=== PATIENT | female | born 1955 | race Caucasian/White ===

== ENCOUNTER 2017-03-28 06:53 | Day surgery (SDC) | payer MEDICARE, MEDICAID ==
[2017-03-28] MEDS ORDERED: Lactated Ringers 1,000 ML IV SCH (07:45)
[2017-03-28] MEDS ORDERED: Glycopyrrolate 0.2 MG/ML 2 ML SDV IVPUSH ONE (08:30)
[2017-03-28] MEDS ORDERED: Cyanocobalamin (Vitamin B12) 1,000 MCG/ML SDV IM ONE (08:45)
[2017-03-28] MEDS ORDERED: MVI, Adult with Vitamin K 10 ML, Thiamine 200 MG, Chromium/Copper/Mang/Selen/Zn 1 ML in... IV ONE ×4 (08:45)
[2017-03-28] MEDS ORDERED: fentaNYL 100 MCG/2 ML SDV ONE (09:10)
[2017-03-28] MEDS ORDERED: Midazolam 1 MG/ML 2 ML SDV ONE (09:10)
[2017-03-28] MEDS ORDERED: Propofol 200 MG/20 ML SDV ONE (09:10)
[2017-03-28 10:32] VITALS: BP 130/75
--- NOTE | 2017-03-30 10:45 | OR ---
DATE OF PROCEDURE: 03/28/2017 PREOPERATIVE DIAGNOSIS: Epigastric pain, status post [place]-en-Y gastric bypass. 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 OPERATIVE PROCEDURE: Upper GI endoscopy with biopsies of gastric pouch for CLOtest. ANESTHESIA: IV sedation. INDICATION FOR PROCEDURE: The patient is status post [place]-en-Y gastric bypass, presenting now with some ongoing epigastric discomfort and some sense of dysphagia. She was recently started on Protonix and Carafate. It is notable that the Carafate that she is taking is in a solid form, which would likely pass through the targeted area, i.e. the gastric pouch and gastrojejunostomy, before dissolving. The plan is to proceed with an upper GI endoscopy with biopsies and/or dilation as indicated. Potential risks including bleeding and perforation were discussed, and the patient wishes to proceed. DETAILS OF PROCEDURE: The patient was taken to the operating room and placed in a left lateral decubitus position. IV sedation was administered, after which the upper GI endoscope was passed orally through the length of the esophagus, into the gastric pouch, and from there through the gastrojejunostomy roughly 20 cm into the [place] limb. Findings included normal hypopharynx, larynx, upper esophageal sphincter, and esophageal body. There were no significant problems noted at the EG junction. The gastric pouch, however, did have patchy areas of reddness and friability, along with edema, consistent with some patchy pouch gastritis. The gastrojejunostomy was widely patent, and no significant inflammation was noted at the gastrojejunostomy or within the [place] limb. At this point, biopsies were obtained from the gastric pouch and sent for CLOtest for H. pylori. Minimal bleeding from the biopsy sites was seen, and the procedure then concluded. At this point, we will have the patient continue the Protonix, but we ordered to have some liquid Carafate. If that is not available, she can also dissolve the solid pills in something like a shy glass of water before using. She has also been instructed that she can use Gaviscon p.r.n. for any stomach burning. Otherwise, will follow up with Annabella Brown at [facility] in one month. Hector Gardiner MD /[id number]
== END 2017-03-28 10:44 | disposition home or self-care (01) ==
LOC: JP.SDS 06:53
PROVIDERS: ATTEND Surgery
DX: K29.70 Gastritis, unspecified, without bleeding (principal); I10 Essential (primary) hypertension; E78.5 Hyperlipidemia, unspecified; K21.9 Gastro-esophageal reflux disease without esophagitis; G47.33 Obstructive sleep apnea (adult) (pediatric); E11.9 Type 2 diabetes mellitus without complications; E03.9 Hypothyroidism, unspecified; F41.9 Anxiety disorder, unspecified; F32.9 Major depressive disorder, single episode, unspecified; Z98.84 Bariatric surgery status; Z88.8 Allergy status to other drugs, medicaments and biological substances; Z91.09 Other allergy status, other than to drugs and biological substances; Z90.49 Acquired absence of other specified parts of digestive tract; Z90.710 Acquired absence of both cervix and uterus; Z68.30 Body mass index [BMI] 30.0-30.9, adult; Z98.890 Other specified postprocedural states; F17.210 Nicotine dependence, cigarettes, uncomplicated
CPT/HCPCS: 43239; 87081; J2250; J2704; J3010; J3411; J3420; J7120; J3490